=== PATIENT | female | born 1985 | race Caucasian/White ===

== ENCOUNTER 2025-04-29 21:31 | Emergency (ER) | payer BC, SELFPAY ==
[2025-04-29 21:41] VITALS: BP 117/75; PULSE 102; RESP 17; TEMP 36.9; O2SAT 17; BMI 32.8
--- OUTSIDE RECORDS SUMMARY | 2025-04-29 21:41 | XMS_ITS | Clinical Summary ---
Author Organization [facility] Address [address] [place] [address] Phone Care Team Providers Care Motor Man Name Role Phone Shameka Armendariz MD Primary Care Provider [phone] Allergies Active Allergy Reactions Criticality Noted Date Comments Bee Venom Protein (Honey Bee) Hives High 11/24/2015 Hymenoptera Allergenic Extract Other (See Comments) 11/24/2015 Induces asthma Medications omeprazole (PriLOSEC) 40 mg Capsule, Delayed Release(E.C.)In dications:Gastr oesophageal reflux disease without esophagitis Take 1 Capsule (40 mg) by mouth daily. 100 Capsule 1 02/05/20 25 Active busPIRone (BUSPAR) 5 mg tabletIndicatio ns:Anxiety state Take 1 Tablet (5 mg) by mouth 3 times daily as needed for Anxiety. 30 Tablet 2 02/05/20 25 Active SUMAtriptan (IMITREX) 50 mg tabletIndicatio ns:Chronic migraine without aura without status migrainosus, not intractable Take 1 Tablet (50 mg) by mouth see administration instructions. Take 1 tablet (50 mg) by mouth at migraine onset. May repeat dose in 2 hours if symptoms persist. Max dose 200 mg in 24 hours. 10 Tablet 02/05/20 25 Active prazosin (MINIPRESS) 1 mg capsule Take 1 Capsule (1 mg) by mouth daily at bedtime. 30 Capsule 03/19/20 25 Active Active Problems Problem Noted Date Diagnosed Date Gastroesophageal reflux disease without esophagi tis 02/04/2025 Anxiety state 02/04/[address] 02/04/2025 Chronic migraine without aura 12/30/2015 Recurrent major depressive disorder Resolved Problems Problem Noted Date Diagnosed Date Resolved Date Metatarsal stress fracture 02/04/2025 0 02/04/2025 Diffuse cystic mastopathy 02/04/2025 Acute cholecystitis due to biliary calculus 04/24/2024 02/04/2025 Posttraumatic stress disorder 11/12/2018 02/04/2025 Major depressive disorder, r ecurrent, severe without psychotic features 12/30/2015 02/04/2025 Suicidal ideation 02/04/2025 Encounters Date Type Department Care Team Description 04/08/2025 External Device Data ST[facility] ABSTRACTION Provider, Abstract 04/08/2025 External Device Data [facility] ABSTRACTION Provider, Abstract 03/20/2025 Results Follow-Up [address] [address] Shameka Armendariz MD INSULIN LEVEL, TSH REFLEXIVE, HEMOGLOBIN A1C 03/19/2025 10:20 AM CDT Office Visit [address] [phone] Shameka Armendariz MD Epigastric pain (Primary Dx); Family history of colon cancer requiring screening colonoscopy; Weight gain; Hypoglycemia; Recurrent major depressive disorder, in partial remission 03/11/2025 External Device Data STL ABSTRACTION Provider, Abstract 02/25/2025 External Device Data ST[facility] ABSTRACTION Provider, Abstract 02/25/2025 External Device Data ST[facility] ABSTRACTION Provider, Abstract 02/04/2025 1:00 PM CDT Office Visit [address] [address] Kimberly Harkins FNP Encounter to establish care (Primary Dx); Parotiditis; Anxiety state; Recurrent major depressive disorder, in partial remission; Gastroesophageal reflux disease without esophagitis; Chronic migraine without aura without status migrainosus, not intractable; Nexplanon in place from Last 3 Months Immunizations Immunization Administration Dates Next Due (ACTHIB/HIBERIX)(2 MOS-5 YRS /6 WKS-4 YRS) HAEMOPHILUS INFLUENZAE TYPE B VACCINE (HIB), PRP-T CONJUGATE, 4 DOSE, 0.5 ML IM 01/02/1989 (ADACEL/BOOSTRIX)(10 YR UP) TDAP VACCINE, 0.5ML, IM 03/08/2024,04/08/2009 (BIOTHRAX)(18-65 YRS) ANTHRA X VACCINE, PRE-EXPOSURE PROPHYLAXIS, POST EXPOSURE PROPHYLAXIS, 0.5 ML IM 07/22/2015 (HAVRIX/VAQTA)(19 YRS UP) HE PATITIS A VACCINE ADULT DOSAGE 1 ML IMM 10/16/2006 (IPOL)(6 WKS AND UP) POLIOVI BECKY VACCINE, INACTIVATED (IPV), 3 DOSE, SUBCUT OR IM 04/08/2009 (M-M-R II/PRIORIX)(12 MO UP) MEASLES, MUMPS AND RUBELLA VIRUS VACCINE, 0.5 ML IM/SUBCUT 06/25/1996,04/20/1987 (TDVAX)(7 YRS UP) TETANUS AN D DIPHTHERIA TOXOIDS, ADSORBED (2 LF OF TETANUS TOXOID AND 2 LF OF DIPHTHERIA TOXOID), 0.5ML (PF), IM 03/27/2001 Diptheria, Tetanus Toxoids, And Whole Cell Pertussis Vaccine (DTP), for intramuscular use 06/27/1991,01/02/1989,1986,07/21,1986 Hepatitis B Vaccine 01/09/2010,05/19/2009,2008 Hepatitis B Vaccine, Unspeci fied Formulation 12/27/2001,07/27/2001,06/29/2001 INFLUENZA VACCINE QUADRIVALE NT 6 MOS UP PF IM 07/21/2015 Influenza A (H1N1) Vaccine IM 01/09/2010 Influenza A (H1N1) Vaccine Nasal 10/10/2009 Influenza Seasonal Unspecifi ed Formulation IM 03/19/2011,08/31/2009 Influenza Vaccine Nasal 10/18/2008 Influenza Vaccine Tri Split 4+ Im 2015,07/22/2015,09/07/2014,07/12,09/11/2012 Meningococcal Polysaccharide Vaccine SQ 04/08/2009 Poliovirus Vaccine Live Oral 06/27/1991, 01/02/1989,1986,07/21,1986 Family History Medical History Relation Name Comments Hypertension Father Андрей Zhong Colon Cancer Maternal Grandmother Violeta Lloyd Heart Attack Paternal Grandmother Georgina Zhong Stroke Paternal Grandmother Georgina Zhong Relation Name Status Comments Father Андрей Zhong Alive Maternal Grandmother Violeta Lloyd Alive Mother Alive Paternal Grandmother Georgina Zhong Social History Tobacco Use Types Packs/Day Years Used Date Smoking Tobacco: Former Cigarettes 0.5 10 Q uit: 05/29/2017 Smokeless Tobacco: Never Tobacco Cessation:Counseling Given: No Alcohol Use Standard Drinks/Week Comments Not Currently 0 (1 standard drink = 0.6 oz pur e alcohol) Feeling Safe Answer Date Recorded Are you in a relationship wi th someone who hurts you emotionally and/or physically? No 10/22/2024 Food Insecurity Answer Date Recorded Patient needs follow up regardin 03/08/2025 Transportation Needs Answer Date Record ed Patient needs follow up regardin 03/08/2025 Housing Stability Answer Date Recorded Social/Environmental Concerns Housing instabilit y 04/24/2024 Utility Needs Answer Date Recorded Patient needs follow up regardin 03/08/2025 Comments No Sex and Gender Information Value Date Recorded Sex Assigned at Female 01/30/2025 10:47 AM CDT Legal Sex Female 12:31 PM GAS LINE SERVICER Gender Identity Female 01/30/2025 10:47 AM CDT Sexual Orientation Straight 01/30/2025 10 :47 AM CDT Last Filed Vital Signs Vital Sign Reading Time Taken Comments Blood Pressure 116/86 03/19/2025 10:17 AM CDT Pulse 88 03/19/2025 10:17 AM CDT Temperature 36.3 C (97.3 F) 10/22/2024 8:56 PM GAS LINE SERVICER Respiratory Rate 16 03/19/2025 10:17 AM CDT Oxygen Saturation 98% 03/19/2025 10:17 AM CDT Inhaled Oxygen Concentration - - Weight 94.2 kg (207 lb 9.6 oz) 03/19/2025 10:17 AM CDT Height 172.7 cm (5' 8 ) 03/19/2025 10:17 AM CDT Body Mass Index 31.57 03/19/2025 10:17 AM CDT Plan of Treatment Upcoming Encounters Date Type Department Care Team (Late st Contact Info) Description 09/22/2025 3:20 PM GAS LINE SERVICER Office Visit [facility] - [address] [address] Shameka Armendariz MD [address] [place] [phone] Health Maintenance Due Date Last Done Comments HPV/Cotest (21-29) 2007 CERVICAL CANCER SCREENING 01/11/2016 HPV/Cotest (30-65) 01/11/2016 PAP SMEAR 01/11/2016 INFLUENZA VACCINE (#1) 2024 6, 07/22/2015, 07/21/2015, Additional history exists Preventative Visit- Commercial 11/06/2024 Pre-Diabetes and Diabetes Screening 03/19/2028 03/19/2025 DTAP/TDAP/TD VACCINES (8 - Td or Tdap) 03/08/2034 03/08/2024, 04/08/2009, 03/27/2001, Additional history exists HEPATITIS B VACCINES Completed 01/09/2010, 05/19/2009, 04/08/2009, Additional history exists HPV VACCINES Aged Out No longer eligi ble based on patient's age to complete this topic Medical Devices Implanted Type Area Religious Activities Director Device Identifier Shelf Expiration Date Model / Serial / Lot Clip Hemolok Ml [id number] - [facility] [place] [id number] Implanted:Qty: 1 on 04/24/2024 by Navi Guzman MD at [facility] Clip N/A: Abdomen TELEFLEX- WECK CLOSURE SYS 01/07/2029 [id number] / / [id number] Clip Hemolok Ml [id number] - Csc - [id number] Implanted:Qty: 1 on 04/24/2024 by Navi Guzman MD at [facility] Clip N/A: Abdomen TELEFLEX- WECK CLOSURE SYS 01/07/2029 [id number] / / [id number] Procedures Procedure Name Priority Date/Time Associated Diagnosis Comments HEMOGLOBIN A1C Routine 03/19/2025 10:42 AM CDT Weight gain Hypoglycemia TSH REFLEXIVE Routine 03/19/2025 10:42 AM CDT Weight gain INSULIN LEVEL Routine 03/19/2025 10:42 AM CDT Hypoglycemia from Last 3 Months Results * TSH REFLEXIVE (03/19/2025 10:42 AM CDT) Pathologist [facility] TSH 1.50 mIU/L [facility] [employer] bryant Galan Comment: Reference Range > or = 20 Years 0.40-4.50 Ranges First trimester 0.26-2.66 Second trimester 0.55-2.73 Third trimester 0.43-2.91 Test Performed at: [facility] [place] [address] [place] [address] Luiz Sanchez Blood 03/19/2025 10:4 2 AM CDT 03/19/2025 7:59 PM CDT Shameka Armendariz MD CHEMISTRY ORDERABLES Final Re sult Performing Organization Address [facility] Phone Number [facility] [phone] [place] [address] [place] [address] * INSULIN LEVEL (03/19/2025 10:42 AM CDT) Pathologist [facility] INSULIN LEVEL 13.6 uIU/mL [facility] Comment: Reference Range < or = 18.4 Risk: Optimal < or = 18.4 Moderate NA High >18.4 Adult cardiovascular event risk category cut points (optimal, moderate, high) are based on Insulin Reference Interval studies performed at [facility] in 2021. Test Performed at: [facility] [address] [place] [address] ChioMiranda Sanchez MD Blood 03/19/2025 10:4 2 AM CDT 03/19/2025 7:59 PM CDT Shameka Armendariz MD CHEMISTRY ORDERABLES Final Re sult Performing Organization Address City/State/ZIP [facility] Phone Number [facility] [phone] [facility] [place] [address] [place] [address] * (ABNORMAL) HEMOGLOBIN A1C (03/19/2025 10:42 AM CDT) HEMOGLOBIN A1C 5.7(H) <5.7 % of total Hgb [employer] Comment: For someone without known diabetes, a hemoglobin A1c value between 5.7% and 6.4% is consistent with prediabetes and should be confirmed with a follow-up test. For someone with known diabetes, a value <7% indicates that their diabetes is well controlled. A1c targets should be individualized based on duration of diabetes, age, comorbid conditions, and other considerations. This assay result is consistent with an increased risk of diabetes. Currently, no consensus exists regarding use of hemoglobin A1c for diagnosis of diabetes for children. ESTIMATED AVERAGE GLUCOSE (MG/DL) 117 mg/dL [employer] ESTIMATED AVERAGE GLUCOSE (MMOL/L) 6.5 mmol/L [employer] bryant Galan Comment: [facility] Performed at: [facility] [address] [place] [address] [employer] Samuel Daniel Blood 03/19/2025 10:4 2 AM CDT 03/19/2025 7:59 PM CDT us Shameka Armendariz MD CHEMISTRY ORDERABLES Final Re sult [facility] [phone] [place] [address] [place] [address] from Last 3 Months Insurance [facility] BCBS EXCHANGE Advance Directives For more information, please contact: [phone] * Full Code (Latest Code Status on File) Date Activated Date Inactivated Comments 04/24/2024 5:00 PM 04/25/2024 1:16 PM * Full Code Date Activated Date Inactivated Comments 04/24/2024 4:51 AM 04/24/2024 5:00 PM * Full Code Date Activated Date Inactivated Comments 11/05/2018 11:24 AM 11/08/2018 2:48 PM * Full Code Date Activated Date Inactivated Comments 12/29/2015 3:13 PM 01/02/2016 5:34 PM Care Teams Motor Man Relationship Specialty Start Date End Date Shameka Armendariz MD [address] [place] [phone] PCP - General Family Practice 02/04/25
--- OUTSIDE RECORDS SUMMARY | 2025-04-29 21:41 | XMS_ITS | Encounter Summary ---
Author Organization [facility] Address [address] [place] [address] Care Team Providers Care Small Products Assembler Name Role Phone Shameka Armendariz MD Primary Care Provider [phone] Encounter Details Date Type Department Care Team (Late st Contact Info) Description 03/20/2025 Results Follow-Up [facility] Medicine - [address] [phone] Shamkea Armendariz MD [address] [place] [phone] INSULIN LEVEL, TSH REFLEXIVE, HEMOGLOBIN A1C Social History Tobacco Use Types Packs/Day Years Used Date Smoking Tobacco: Former Cigarettes 0.5 10 Q uit: 05/29/2017 Smokeless Tobacco: Never Alcohol Use Standard Drinks/Week Comments Not Currently [...] AM CDT Legal Sex Female 12:31 PM ATOMIC SPECTROSCOPIST Gender Identity Female 01/30/2025 10:47 AM CDT Sexual Orientation Straight 01/30/2025 10 :47 AM CDT documented as of this encounter Plan of Treatment Upcoming Encounters Date Type Department Care Team (Late st Contact Info) Description 09/22/2025 3:20 PM ATOMIC SPECTROSCOPIST Office Visit [address] [phone] Shameka Armendariz MD [address] [place] [phone] documented as of this encounter Visit Diagnoses Not on filedocumented in this encounter Care Teams Small Products Assembler Relationship Specialty Start Date End Date Shameka Armendariz MD [address] [place] [address] [place] [phone] PCP - General Family Practice 02/04/25 documented as of this encounter
--- NOTE | 2025-04-29 21:58 | XRR_ITS ---
PROCEDURE INFORMATION: Exam: XR Chest Exam date and time: 04/29/2025 10:15 PM Age: 40 years old Clinical indication: Other: Ble edema; Additional info: Le edema, short of breath TECHNIQUE: Imaging protocol: Radiologic exam of the chest. Views: 1 view. COMPARISON: No relevant prior studies available. FINDINGS: Lungs: Clear, symmetrically inflated lungs. Pleural spaces: No pleural effusion. No pneumothorax. Heart/Mediastinum: Cardiac silhouette is normal in size for technique. Bones/joints: Age appropriate. XR/XR chest 1V portable [id number] IMPRESSION: No acute cardiopulmonary abnormality.
--- NOTE | 2025-04-29 22:05 | W.ED.EXTPRO ---
HPI - Extremity Problem General: Chief complaint: Extremity Problem,Nontraumatic Stated complaint: Both Ankles Swollen Time Seen by Provider: 04/29/25 21:38 History of Present Illness: 40-year-old female not on medications, nondrinker, non-smoker that presents to the emergency room due to lower extremity edema. This occurred yesterday. It has been worsening over time. She states she has aching lower legs. No redness. [place], and air just went out today. She denies unilateral weakness, or worsening on one side. Associated symptoms: Deny chest pain, fever(s) or rash Related Data Previous Rx's ?Medication ?Instructions ?Recorded spironolactone 25 mg tablet 25 mg PO DAILY PRN weight gain #30 04/29/25 tabs Review of Systems General: Reports: 10 or more systems reviewed and unremarkable except in HPI and below Const: Denies: fever(s) or chills Eyes: Denies: change in vision or blurry vision ENMT: Denies: throat pain or uvular edema Card: Denies: chest pain or palpitations Resp: Denies: dyspnea or productive cough GI: Denies: abdominal pain, nausea or vomiting : Denies: flank pain or difficulty voiding Musc: Reports: extremity pain and extremity swelling; Denies: neck pain or back pain Skin/Breast: Denies: rash or pruritus Neuro: Denies: headache(s) or numbness in extremities Psych: Denies: anxiety or depression Physical Exam Const: COMMON NORMALS: no acute distress, average body habitus, patient oriented x3 and no limitations HENMT: COMMON NORMALS: normocephalic HEAD & SCALP: normocephalic THROAT: no uvular edema Neck/C-Spine: COMMON NORMALS: full ROM and no lymphadenopathy Lymph: LYMPHATIC: no lymphadenopathy noted Resp: COMMON NORMALS: normal respiratory effort EFFORT & INSPECTION: Yes able to speak in complete sentences and No abnormal respiratory pattern AUSCULTATION: crackles (distal bases, otherwise clear) Laterality: bilateral Cardio: COMMON NORMALS: regular rate and regular rhythm RATE: regular rate RHYTHM: regular rhythm GI: COMMON NORMALS: Normal to inspection, nondistended, normoactive bowel sounds present, Soft to palpation and non-tender PALPATION: Yes Soft to palpation : COMMON NORMALS: Yes no CVA tenderness BLADDER/KIDNEY EXAM: Yes no CVA tenderness Back/Pelvis: COMMON NORMALS: no CVA tenderness Extremity: GENERAL: Yes edema (bilat LE) Neuro: COMMON NORMALS: patient oriented x3 Psych: COMMON NORMALS: mental status grossly normal, Normal thought process present, cooperative, normal affect and speech normal SPEECH: Yes normal speech THOUGHT PROCESS: Normal thought process present Skin: COMMON NORMALS: no rashes or lesions noted, no wounds and turgor normal GENERAL SKIN EXAM: no rashes or lesions noted and turgor normal Course Vital Signs: Vital signs: Vital Signs Temperature 98.5 F 04/29/25 21:41 Pulse Rate 97 04/29/25 23:21 Respiratory Rate 14 04/29/25 23:21 Blood Pressure 111/77 04/29/25 23:21 Pulse Oximetry 97 04/29/25 23:21 Oxygen Delivery Me thod Room Air 04/29/25 21:41 MDM - Extremity (Nontraumatic) Medical Decision Making Patient is a 40-year-old female notes eating meat sandwich on white bread, and eggs for breakfast[place] into her [place] that has increasing edema to lower extremities last 2 days. I suspect this is multifactoral since her workup is negative. Her D-dimer is negative, and therefore no additional testing will need to be performed and coagulopathy is ruled out. TSH is in range, no other red flags other than mild elevation of CRP, which could be unrelated. Patient however does have significant lower extremity edema, and minimal elevation of ALT. Additional differentials include MAURO, diastolic dysfunction, however blood pressure is on the softer side. Will give spironolactone x 1 to avoid hypotension, and as needed for weight gain greater than 2 pounds, and recommend compression. Patient agrees with plan and all of her questions were answered to her satisfaction. Lab Data 04/29/25 22:18 04/29/25 22:18 Radiology Impressions Chest X-Ray 04/29/25 21:58 IMPRESSION: No acute cardiopulmonary abnormality. Laboratory Results WBC 7.21 10^3/uL (3.29-11.43) 04/29/25 22:18 RBC 4.04 10^6/uL (3.85-5.65) 04/29/25 22:18 Hgb 11.80 g/dL (11.27-16.99) 04/29/25 22:18 Hct 36.1 % (36-47) 04/29/25 22:18 MCV 89.4 fl (85-98) 04/29/25 22:18 MCH 29.2 pg (27-33) 04/29/25 22:18 MCHC 32.7 g/dL (30-55) 04/29/25 22:18 RDW 13.9 % (12.1-15.1) 04/29/25 22:18 Plt Count 241 10^3/cmm (157-399) 04/29/25 22:18 MPV 9.3 fL (7.4-10.4) 04/29/25 22:18 Neut % (Auto) 62.7 % 04/29/25 22:18 Lymph % (Auto) 25.0 % 04/29/25 22:18 Cowley % (Auto) 8.5 % 04/29/25 22:18 Eos % (Auto) 2.8 % 04/29/25 22:18 Baso % (Auto) 0.6 % 04/29/25 22:18 Neut # (Auto) 4.53 10^3/uL (1.8-7.7) 04/29/25 22:18 Lymph # (Auto) 1.8 10^3/uL (0.8-4.8) 04/29/25 22:18 Cowley # (Auto) 0.6 10^3/uL (0.2-0.9) 04/29/25 22:18 Eos # (Auto) 0.2 10^3/uL (0.0-0.8) 04/29/25 22:18 Baso # (Auto) 0.0 10^3/uL (0.0-0.1) 04/29/25 22:18 Nucleated RBC % (auto) 0 % 04/29/25 22:18 Nucleated RBCs # 0.0 /100WBC 04/29/25 22:18 D-Dimer 0.30 ug/mLFEU (0-0.59) 04/29/25 22:18 Sodium 140 mmol/L (136-145) 04/29/25 22:18 Potassium 3.8 mmol/L (3.5-5.1) 04/29/25 22:18 Chloride 103 mmol/L (98-107) 04/29/25 22:18 Carbon Dioxide 26 mmol/L (22-29) 04/29/25 22:18 Anion Gap 14.8 (5-19) 04/29/25 22:18 BUN 16 mg/dL (6-20) 04/29/25 22:18 Creatinine 0.9 mg/dL (0.5-0.9) 04/29/25 22:18 GFR Calculation 69.7 mL/min (90-130) L 04/29/25 22:18 Glucose 87 mg/dL (65-115) 04/29/25 22:18 Calculated Osmolality 291 mOsm/kg (285-295) 04/29/25 22:18 Calcium 9.2 mg/dL (8.5-10.5) 04/29/25 22:18 Total Bilirubin 0.2 mg/dL (0.15-1.2) 04/29/25 22:18 AST 25 U/L (0-32) 04/29/25 22:18 ALT 52 U/L (0-33) H 04/29/25 22:18 Alkaline Phosphatase 121 U/L (35-105) H 04/29/25 22:18 C-Reactive Protein 8.1 mg/L (0.0-4.9) H 04/29/25 22:18 NT-Pro-B Natriuret Pep < 36 pg/mL (0-125) 04/29/25 22:18 Total Protein 7.2 g/dL (6.6-8.7) 04/29/25 22:18 Albumin 3.9 g/dL (3.5-5.2) 04/29/25 22:18 Globulin 3.3 g/dL (1.3-4.6) 04/29/25 22:18 TSH 2.75 uIU/mL (0.27-4.20) 04/29/25 22:18 All radiology interpretation(s) finalized by discharge ED provider radiology interpretation(s): no acute Discharge Plan Discharge Patient Disposition: Home Clinical Impression: Bilateral edema of lower extremity Condition: Stable Prescriptions: New spironolactone 25 mg tablet 25 mg PO DAILY PRN (Reason: weight gain) Qty: 30 0RF Rx Instructions: Weight gain >2pounds Discharge Orders: Discharge ED (Routine); Ordered 04/29/25 Ordered By: Carly Wittke Discharge Diet: Low Salt Patient Instructions: DASH Eating Plan (ED), Opioid Safety, Pain Management, Patient Portal & Chary Instructions Activity Restrictions/Additional Instructions: Compression to lower extremities bilaterally. No blood clot is found in your lower extremities/body Your chest x-ray was without acute findings Laboratory data was in range Low-salt diet is the easiest way to reduce lower extremity edema It is important to follow-up with your doctor regarding your visit today Weigh daily. If you gain more than 2 pounds, take spironolactone x 1. Print Language: Albanian Coding Level of Care Code ED Laser Systems Engineer for Cher Mullen
[2025-04-29 22:25] LABS: Basophils % 0.6 %; Eosinophils # 0.2 10^3/uL (0.0-0.8); Eosinophils % 2.8 %; Hematocrit 36.1 % (36-47); Lymphocytes # 1.8 10^3/uL (0.8-4.8); Mean Corpuscular HGB Conc 32.7 g/dL (30-55); Mean Corpuscular Hemoglobin 29.2 pg (27-33); Mean Corpuscular Volume 89.4 fl (85-98); Mean Platelet Volume 9.3 fL (7.4-10.4); Monocytes # 0.6 10^3/uL (0.2-0.9); Monocytes % 8.5 %; Neutrophils # 4.53 10^3/uL (1.8-7.7); Neutrophils % 62.7 %; Nucleated Red Blood Cells % 0 %; Platelet Count 241 10^3/cmm (157-399); Red Blood Count 4.04 10^6/uL (3.85-5.65); Red Cell Distribution Width 13.9 % (12.1-15.1); White Blood Count 7.21 10^3/uL (3.29-11.43)
[2025-04-29 22:57] LABS: Alanine Aminotransferase 52 U/L (0-33); Albumin Level 3.9 g/dL (3.5-5.2); Alkaline Phosphatase 121 U/L (35-105); Anion Gap 14.8 (5-19); Aspartate Amino Transferase 25 U/L (0-32); Blood Urea Nitrogen 16 mg/dL (6-20); C Reactive Protein 8.1 mg/L (0.0-4.9); Calcium 9.2 mg/dL (8.5-10.5); Carbon Dioxide 26 mmol/L (22-29); Chloride 103 mmol/L (98-107); Creatinine Clr Calc Pharmacy 102.7158; Globulin 3.3 g/dL (1.3-4.6); Glomerular Filtration Rate 69.7 mL/min (90-130); Glucose 87 mg/dL (65-115); NT Pro B Type Natriuretic Pept < 36 pg/mL (0-125); Osmolality Calculated 291 mOsm/kg (285-295); Potassium 3.8 mmol/L (3.5-5.1); Sodium 140 mmol/L (136-145); Thyroid Stimulating Hormone 2.75 uIU/mL (0.27-4.20); Total Bilirubin 0.2 mg/dL (0.15-1.2); Total Protein 7.2 g/dL (6.6-8.7)
[2025-04-29] MEDS: spironolactone 25 mg Tablet 50 MG PO (23:17)
[2025-04-29 23:21] VITALS: BP 111/77; PULSE 97; RESP 14; O2SAT 97
== END 2025-04-29 23:20 | disposition home or self-care (01) ==
PROVIDERS: Emergency Provider Physician Assistant
DX: R60.0 Localized edema (principal)
CPT/HCPCS: 36415; 71045; 80053; 83880; 84443; 85025; 85378; 86140; 99284; J9999